=== PATIENT | female | born 1935 | race African-American/Black ===

== ENCOUNTER 2018-02-17 11:50 | Emergency (ER) | payer MEDICARE, BC ==
[~2018-02-17] VITALS: Ht 160 cm; Wt 60.0 kg
[2018-02-17] MEDS ORDERED: KETOROLAC 30MG/ML VIAL IV STA (12:40)
[2018-02-17 13:26] LABS: BASOPHILS % 0.4 % (0.0-2.0); EOSINOPHILS % 0.3 % (0.0-5.0); HEMATOCRIT. 36.1 % (36.0-48.0); HEMOGLOBIN. 11.9 g/dL (12.0-16.0); LYMPHOCYTES % 28.7 % (20.0-50.0); MEAN CORPUSCULAR HEMOGLOBIN 31.6 pg (28.0-32.0); MEAN CORPUSCULAR VOLUME 95.7 fL (81.0-99.0); MEAN PLATELET VOLUME 7.9 fl (7.4-10.4); MONOCYTES % 10.2 % (2.0-8.0); NEUTROPHILS % 60.4 % (40.0-76.0); PLATELET 260 x1000/uL (130-400); RED BLOOD CELL COUNT 3.78 mill/uL (4.2-5.4); RED CELL DISTRIBUTION WIDTH 14.7 % (11.6-14.6)
[2018-02-17 13:32] LABS: CHLORIDE 104 mEq/L (98-107)
[2018-02-17 15:16] LABS: PARTIAL THROMBOPLASTIN TIME 29.9 sec (23.4-31.0); PROTHROMBIN TIME 10.4 sec (9.1-11.1)
[2018-02-17 16:45] VITALS: BP 206/94
== END 2018-02-17 16:57 | disposition home or self-care (01) ==
LOC: ER 11:50 → EDBD 11:50 → ER 16:57
DX: M79.89 Other specified soft tissue disorders (principal); I10 Essential (primary) hypertension
CPT/HCPCS: 36415; 73130; 80048; 84550; 85025; 85610; 85730; 96374; 99284; J1885